=== PATIENT | female | born 2000 | race Caucasian/White ===

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

== ENCOUNTER 2018-01-13 15:52 | Emergency (ER) | payer BC ==
[2018-01-13] MEDS ORDERED: Morphine 4 MG/ML VIAL ONE (16:21)
[2018-01-13] MEDS ORDERED: Ondansetron PF 4 MG/2 ML Vial ONE (16:21)
[2018-01-13] MEDS ORDERED: Morphine 2 MG/ML SYRINGE ONE (16:21)
[2018-01-13 16:25] LABS: Bilirubin Negative (Negative); Blood, Urine Small (Negative); Clarity TURBID (Clear); Glucose, Urine (Dipstick) Negative (Negative); Leukocyte Moderate (Negative); Nitrite Negative (Negative); Protein, Urine (Dipstick) Negative (Neg-Trace); Specific Gravity, Urine 1.024 (1.002-1.036)
[2018-01-13 16:26] LABS: Bacteria/HPF Rare-Few HPF (None Seen); Hyaline Casts/LPF 0-3 HYALINE CAST LPF (0-3 Hyaline); RBC/HPF 0-3 HPF (0-3); Squamous Epithelial 0-3 HPF (0-3); WBC/HPF 21-50 HPF (0-3)
[2018-01-13 16:27] LABS: #Eosinphils 0.1 thou/uL (0.0-0.7); #Lymphocytes 1.6 thou/uL (1.20-3.40); #Monocytes 0.6 thou/uL (0.11-0.59); %Basophils 0.4 % (0.0-1.0); %Eosinophils 0.9 % (0.0-10.0); %Lymphocytes 21.8 % (28.0-48.0); %Monocytes 8.7 % (0.0-4.0); %Neutrophils 68.3 % (31.0-61.0); Hemoglobin 14.7 g/dL (12.0-16.0); Mean Corpuscular HGB CONC 34.1 g/dL (32.0-36.0); Mean Corpuscular Hemoglobin 30.1 pg (25.0-35.0); Mean Corpuscular Volume 88.4 fL (78.0-98.0); Mean Platelet Volume 6.7 fL (7.4-10.4); Platelet Count 380 thou/uL (130-400); RBC Distribution Width 11.3 % (11.5-14.5); Red Blood Cell (RBC) Count 4.86 mill/uL (4.00-5.20); White Blood Cell (WBC) Count 7.4 thou/uL (4.8-10.8)
[2018-01-13 16:29] LABS: Pregnancy Test - Urine (BHCG) Negative (Negative); Specific Gravity 1.024 (1.002-1.036)
[2018-01-13 16:30] LABS: Pregu Control Background? CLEAR/WHITE (CLR/WHITE); Pregu Control Bar Appear? YES (CONTROL BAR)
[2018-01-13 16:46] LABS: ALT (SGPT) 11 U/L (8-55); AST (SGOT) 15 U/L (5-30); Albumin 4.6 g/dL (3.5-5.0); Alkaline Phosphatase 68 U/L (40-150); Anion Gap 13 mmol/L (10-20); BUN (Urea Nitrogen) 9 mg/dL (8.4-21.0); Bilirubin, Total 0.4 mg/dL (0.2-1.2); Calc. Creatinine Clearance 0 mL/min (70-130); Calcium 9.8 mg/dL (7.8-10.44); Carbon Dioxide 26 mmol/L (22-29); Chloride 102 mmol/L (98-107); Estimated GFR-MDRD 89; Globulin 3.6 g/dL (2.4-3.5); Glucose 98 mg/dL (70-105); Lipase 18 U/L (8-78); Potassium 3.7 mmol/L (3.5-5.1); Protein, Total 8.2 g/dL (6.0-8.3); Sodium 137 mmol/L (136-145)
--- NOTE | 2018-01-13 18:47 | ULT ---
RIGHT UPPER QUADRANT ULTRASOUND: 01/13/18 PROVIDED CLINICAL HISTORY: Abdominal pain. FINDINGS: The visualized IVC and pancreas appear normal. The liver demonstrates no mass or intrahepatic biliary ductal dilatation. Common duct is not dilated. Gallbladder demonstrates no stones, wall thickening, or pericholecystic fluid. Right kidney demonstrates no hydronephrosis or mass. IMPRESSION: No evidence for an acute process. POS: ARNEL
[2018-01-13] MEDS ORDERED: Ketorolac Tromethamine 30 MG/ML VIAL ONE (19:46)
--- NOTE | 2018-01-13 19:49 | CT ---
NONCONTRAST CT ABDOMEN AND PELVIS: 01/13/18 HISTORY: Left sided abdominal pain. COMPARISON: None available. FINDINGS: Lack of intravenous contrast limits sensitivity for evaluation of the parenchymal organs. However, th e liver, spleen, pancreas, bilateral adrenal glands, kidneys, and urinary bladder demonstrate a gross ly normal nonenhanced CT appearance. No renal or ureteral calculi are seen bilaterally and there is n o hydronephrosis. A T-shaped intrauterine contraceptive device is noted in place. There is a small low density structur e in the left adnexal region measuring 2.4 cm probably related to small left ovarian cyst. Right adne xal structures have a grossly normal nonenhanced CT appearance. The appendix is visualized and normal in caliber. IMPRESSION: 1. No renal or ureteral calculi are seen bilaterally. 2. No CT evidence of appendicitis. 3. Probable small left ovarian cyst. 4. T-shaped intrauterine contraceptive device. POS: RAY
--- NOTE | 2018-01-13 21:11 | ULT ---
TRANSABDOMINAL AND PELVIC ULTRASOUND 01/13/18 PROVIDED CLINICAL HISTORY: Pelvic pain. FINDINGS: The uterus measures approximately 6.6 x 4.2 x 2.6 cm and demonstrates a normal transabdominal sonogra phic appearance. Right ovary measures about 4.1 x 1.4 x 2.7 cm and demonstrates a normal transabdominal sonographic ap pearance. Left ovary measures approximately 3.2 x 2 x 2 cm and demonstrates a simple appearing likely physiolog ic cyst measuring about 2 cm. Color doppler and spectral analysis of the ovarian waveforms demonstrate flow bilaterally. There is no evidence for free pelvic fluid. IMPRESSION: Unremarkable transabdominal pelvic ultrasound. POS: ARNEL
== END 2018-01-13 20:36 | disposition home or self-care (01) ==
LOC: ERS 15:52
DX: N83.202 Unspecified ovarian cyst, left side (principal)
CPT/HCPCS: 36415; 74176; 76705; 76856; 80053; 81003; 81015; 81025; 83690; 85025; 93976; 96374; 96375; J1885; J2270; J2405